=== PATIENT | female | born 1960 | race Caucasian/White ===

== ENCOUNTER 2023-11-27 19:45 | Emergency (ER) | payer OTHER ==
[~2023-11-27] VITALS: Ht 160 cm; Wt 99.8 kg
[2023-11-27 19:56] VITALS: BP_SYST 142; PULSE 78; RESP 20; TEMP 98; O2SAT 97
[2023-11-27] MEDS: DIAZEPAM 5 MG TABLET (VALIUM) PO ONE (20:20)
[2023-11-27] MEDS: KETOROLAC TROMETHAMINE 60 MG/2 ML VIAL IM ONE (20:21)
[2023-11-27] MEDS ORDERED: DICL75TA5 PO (21:52)
[2023-11-27] MEDS ORDERED: SOM350 PO (21:52)
== END 2023-11-27 22:08 | disposition home or self-care (01) ==
LOC: SED 19:45
DX: M54.30 Sciatica, unspecified side (principal); Z79.899 Other long term (current) drug therapy
CPT/HCPCS: 99285; 72131; 96372; J1885